=== PATIENT | male | born 1955 | race Caucasian/White ===

== ENCOUNTER 2016-10-13 06:53 | Emergency (ER) | payer OTHER ==
--- NOTE | 2016-10-18 23:42 | ER ---
ADMIT: 10/13/2016 RM/LOC: ER [facility] MR#: [id number] [facility] [address] [place], [place] [id number] DARLENE NEWMAN [facility] [address] [place] [id number] Emergency Room Report SEX: M AGE: 61 : 1955 DATE: 10/13/2016 TIME: 0653 hours. Please refer to my T-sheet for complete H and P. HISTORY OF PRESENT ILLNESS: Briefly, the patient is a 61-year-old, who cut his right wrist this morning at work. He got it caught on a pallet and some hardware. PHYSICAL EXAMINATION: VITAL SIGNS: Stable. EXTREMITIES: His right wrist has a laceration on the dorsoradial aspect, neurovascularly intact distally. EMERGENCY DEPARTMENT COURSE: I anesthetized the area with 4 mL of lidocaine with epi, cleansed with saline wash and Betadine scrub, approximated using seven 4-0 interrupted Ethilon, showed good approximation. Hemostasis was achieved, we put a pressure dressing on it. He was ready for discharge. ASSESSMENT: Right wrist laceration of 4 cm, closed in the Emergency Department as above. PLAN: Suture removal in 7 to 10 days. Keep clean and dry. Tylenol or Motrin. Return if fever, pus, drainage. Tunde Mackey MD/ porsha JOB #: [id number] CC: Jayme Fong MD, Attending Physician Bob Rebolledo DO, Family Physician
== END 2016-10-13 07:28 | disposition home or self-care (01) ==
LOC: ER 06:53
PROC: 0HQDXZZ Repair Right Lower Arm Skin, External Approach (ICD-10-PCS; principal; 2016-10-13)
DX: S61.511A Laceration without foreign body of right wrist, initial encounter (principal); F17.210 Nicotine dependence, cigarettes, uncomplicated; W45.8XXA Other foreign body or object entering through skin, initial encounter; Y92.69 Other specified industrial and construction area as the place of occurrence of the external cause; Y99.0 Civilian activity done for income or pay